=== PATIENT | female | born 1950 | race Caucasian/White ===

== ENCOUNTER 2018-03-27 08:34 | Outpatient (CLI) | payer MEDICARE, BC | END 2018-03-27 08:35 | disposition home or self-care (01) | LOC: BICMAMMO 08:34 | PROVIDERS: ATTEND Orthopaedic Surgery | DX: Z13.820 Encounter for screening for osteoporosis (principal); M25.511 Pain in right shoulder; M85.89 Other specified disorders of bone density and structure, multiple sites; M19.011 Primary osteoarthritis, right shoulder; M62.511 Muscle wasting and atrophy, not elsewhere classified, right shoulder; M75.101 Unspecified rotator cuff tear or rupture of right shoulder, not specified as traumatic | CPT/HCPCS: 77080 ==

== ENCOUNTER 2022-07-12 09:56 | Outpatient (CLI) | payer MEDICARE, BC | END 2022-07-12 09:57 | disposition home or self-care (01) | LOC: LABBT 09:56 | PROVIDERS: ATTEND Orthopaedic Surgery | DX: Z01.818 Encounter for other preprocedural examination (principal); M17.11 Unilateral primary osteoarthritis, right knee | CPT/HCPCS: 71046; 80048; 81003; 85025; 85610; 86850; 86900; 86901; 87081; 87811; 93005; 93010 ==